=== PATIENT | male | born 1950 | race Caucasian/White ===

== ENCOUNTER 2017-08-17 13:57 | Inpatient (IN) | payer MEDICARE, OTHER ==
[~2017-08-17] VITALS: Ht 152.4 cm; Wt 87.5 kg
[~2017-08-17 13:57] MED LIST: INSU100C4 SQ; INSU100C6 SQ; NEXIUM; SEROQUEL; [UNRECOGNIZED DRUG - REMARK]
[2017-08-17 15:10] LABS: BASOPHILS % (AUTO) 0.2 % (0.0-2.0); EOSINOPHILS % (AUTO) 0.3 % (1.0-6.0); HEMATOCRIT 29.3 % (41-53); HEMOGLOBIN 9.8 g/dL (13.5-17.5); LYMPHOCYTES # (AUTO) 0.7 K/uL (1.0-4.8); LYMPHOCYTES % (AUTO) 13.9 % (22.0-44.0); MEAN CORPUSCULAR HGB CONC 33.3 G/dL (31.0-37.0); MEAN CORPUSCULAR VOLUME 90 fL (80-100); MONOCYTES # (AUTO) 0.5 K/uL (0.1-1.0); MONOCYTES % (AUTO) 9.3 % (2.0-9.0); NEUTROPHILS # (AUTO) 3.9 K/uL (1.8-7.7); NEUTROPHILS % (AUTO) 76.3 % (40.0-70.0); PLATELET COUNT (AUTO) 193 K/uL (150-450); RED BLOOD CELL COUNT(AUTO) 3.26 MIL/uL (4.50-5.90); RED CELL DISTRIBUTION WIDTH 16.8 % (11.5-14.5); WHITE BLOOD COUNT (AUTO) 5.1 K/uL (4.5-11.0)
[2017-08-17 15:22] LABS: ANION GAP 10 mmol/L (8-16); CALCIUM, TOTAL 8.4 mg/dL (8.8-10.5); CARBON DIOXIDE 25 mmol/L (22-29); CHLORIDE 115 mmol/L (98-107); CREATININE 1.67 mg/dL (0.60-1.30); GLOMERULAR FILTR. RATE CALC 41 mL/min (>60); POTASSIUM 3.5 mmol/L (3.5-5.1); SODIUM SERUM 150 mmol/L (136-145); UREA NITROGEN, BLOOD 44 mg/dL (7-18)
[2017-08-17 15:29] LABS: ALANINE AMINOTRANSFERASE 26 U/L (12-78); ASPARTATE AMINOTRANSFERASE 25 U/L (15-37); BILIRUBIN,TOTAL 0.3 mg/dL (0.1-1.0); CREATINE KINASE, TOTAL 64 U/L (39-308); TOTAL PROTEIN, SERUM 5.7 g/dL (6.4-8.2)
[2017-08-17 15:31] LABS: B-TYPE NATRIURETIC PEPTIDE 971 pg/mL (0-100)
[2017-08-17 15:37] LABS: INR 1.1 (0.9-1.1); PROTHROMBIN TIME 11.6 SEC (9.4-11.6)
[2017-08-17 15:40] LABS: APPEARANCE,URINE CLOUDY (CLEAR); GLUCOSE, URINE (UA) NEGATIVE (NEGATIVE); KETONES,URINE NEGATIVE (NEGATIVE); LEUKOCYTE ESTERASE ,URINE NEGATIVE (NEGATIVE); OCCULT BLOOD,URINE NEGATIVE (NEGATIVE); PROTEIN,URINE SEE CONFIRM (NEGATIVE)
[2017-08-17 15:42] LABS: ADD UA MICROSCOPIC YES
[2017-08-17 15:44] LABS: SULFOSALICYLIC ACID,URINE 4+ (Negative); WBC,URINE 0-2 /HPF (0-5)
[2017-08-17 15:47] LABS: RBC,URINE 0-2 /HPF (0-2); TRANSITIONAL EPI CELLS,URINE Few /LPF (None Seen)
[2017-08-17] MEDS ORDERED: ENOXAPARIN SODIUM 80 MG/0.8 ML PF SYRINGE SQ SCH (16:15)
[2017-08-17] MEDS ORDERED: ONDANSETRON HCL 4 MG/2 ML VIAL IVP PRN (17:45)
[2017-08-17] MEDS ORDERED: ACETAMINOPHEN 325 MG TABLET PO PRN (17:45)
[2017-08-17] MEDS ORDERED: 0.9% SODIUM CHLORIDE 10 ML SYRINGE IVP PRN (17:45)
[2017-08-17] MEDS ORDERED: FUROSEMIDE 40 MG/4 ML VIAL IVP ONE ×2 (18:00)
[2017-08-17] MEDS ORDERED: PENTETATE DTPA TC99M/MCL ISOTOPE 1 EA INJ INJ ONE (20:00)
[2017-08-17] MEDS ORDERED: IPRATROPIUM BROMIDE 0.5 MG/2.5 ML NEB SOLUTION NEB SCH (20:00)
[2017-08-17] MEDS ORDERED: ALBUTEROL SULFATE 2.5 MG/0.5 ML NEB SOLUTION NEB SCH (20:00)
[2017-08-17] MEDS ORDERED: MAA ALBUMIN AGGREGATED TC99M/UD<10MCL ISOTOPE 1 EA INJ INJ ONE (20:20)
[2017-08-17 21:00] VITALS: BP 129/61
[2017-08-17] MEDS ORDERED: DEXTROSE 50%-WATER 25 GM/50 ML SYRINGE IVP PRN (21:15)
[2017-08-17] MEDS ORDERED: ALBUTEROL SULFATE 2.5 MG/0.5 ML NEB SOLUTION NEB PRN (21:15)
[2017-08-17] MEDS ORDERED: ZOLPIDEM TARTRATE 5 MG TABLET PO PRN (21:15)
[2017-08-17] MEDS ORDERED: BISACODYL 10 MG RECTAL RECTAL SUPPOSITORY PR PRN (21:15)
[2017-08-17] MEDS ORDERED: IPRATROPIUM BROMIDE 0.5 MG/2.5 ML NEB SOLUTION NEB PRN (21:15)
[2017-08-17] MEDS ORDERED: INFLUENZA VIRUS VACCINE QVS 2017-18 (3YR+)/PF 60 MCG/0.5 ML SYRINGE IM ONE (23:00)
[2017-08-18] VITALS (7 sets, daily range): BP systolic 100–133; BP diastolic 43–56
[2017-08-18] MEDS ORDERED: FUROSEMIDE 40 MG/4 ML VIAL IVP SCH
[2017-08-18 04:47] LABS: GLUCOSE,POINT OF CARE 120 MG/DL (70-110)
[2017-08-18 05:15] LABS: ALBUMIN 1.7 g/dL (3.4-5.0); BILIRUBIN,TOTAL 0.2 mg/dL (0.1-1.0); CREATININE 1.87 mg/dL (0.60-1.30); POTASSIUM 3.7 mmol/L (3.5-5.1); TOTAL PROTEIN, SERUM 5.2 g/dL (6.4-8.2)
[2017-08-18 06:05] LABS: EOSINOPHILS % (AUTO) 0.5 % (1.0-6.0); HEMOGLOBIN 9.2 g/dL (13.5-17.5); LYMPHOCYTES # (AUTO) 0.5 K/uL (1.0-4.8); LYMPHOCYTES % (AUTO) 10.7 % (22.0-44.0); MEAN CORPUSCULAR HEMOGLOBIN 30.1 pg (26.0-34.0); MEAN CORPUSCULAR VOLUME 91 fL (80-100); MONOCYTES # (AUTO) 0.5 K/uL (0.1-1.0); MONOCYTES % (AUTO) 10.9 % (2.0-9.0); NEUTROPHILS # (AUTO) 3.8 K/uL (1.8-7.7); NEUTROPHILS % (AUTO) 77.9 % (40.0-70.0); PLATELET COUNT (AUTO) 190 K/uL (150-450); RED BLOOD CELL COUNT(AUTO) 3.06 MIL/uL (4.50-5.90); RED CELL DISTRIBUTION WIDTH 16.7 % (11.5-14.5); WHITE BLOOD COUNT (AUTO) 4.9 K/uL (4.5-11.0)
[2017-08-18] MEDS: ASPIRIN 81 MG CHEWABLE TABLET PO SCH (07:59)
[2017-08-18] MEDS: DOCUSATE SODIUM 100 MG CAPSULE PO SCH ×2 (07:59→20:51)
[2017-08-18] MEDS ORDERED: HEPARIN SODIUM,PORCINE 5,000 UNITS/ML VIAL SQ SCH (09:00)
[2017-08-18] MEDS ORDERED: PANTOPRAZOLE SODIUM 40 MG DR TABLET PO SCH (09:00)
[2017-08-18] MEDS: FUROSEMIDE 40 MG/4 ML VIAL IVP SCH ×2 (10:38→20:51)
[2017-08-18 12:07] LABS: GLUCOSE COMMENT 1 Received Meds; GLUCOSE,POINT OF CARE 140 MG/DL (70-110)
[2017-08-18] MEDS: IPRATROPIUM BROMIDE 0.5 MG/2.5 ML NEB SOLUTION NEB SCH ×3 (13:57→23:02)
[2017-08-18] MEDS: ALBUTEROL SULFATE 2.5 MG/0.5 ML NEB SOLUTION NEB SCH ×3 (13:57→23:02)
[2017-08-18 16:55] LABS: MAGNESIUM 2.5 mg/dL (1.80-2.40); PHOSPHORUS 5.1 mg/dL (2.5-4.9)
[2017-08-18] MEDS: INSULIN ASPART 100 UNITS/ML SQ PRN (21:07)
[2017-08-18] MEDS: OxyCODONE HCL/ACETAMINOPHEN 5-325 MG TABLET PO PRN (22:57)
[2017-08-19] VITALS: BP 114/50
[2017-08-19] MEDS: ALBUTEROL SULFATE 2.5 MG/0.5 ML NEB SOLUTION NEB SCH ×5 (02:50→23:46)
[2017-08-19] MEDS: IPRATROPIUM BROMIDE 0.5 MG/2.5 ML NEB SOLUTION NEB SCH ×5 (02:50→23:46)
[2017-08-19] MEDS ORDERED: RAPID SEQUENCE KIT [RSI] 1 EACH KIT ONE ×4 (03:37→03:56)
[2017-08-19 04:00] VITALS: BP 111/95
[2017-08-19 04:58] LABS: ABG A-A DIFF O2 564.8 mmHg (10-20.0); ABG BASE EXCESS -8.6 mmol/L (-2.0-3.0); ABG HCO3 17.5 mmol/L (22.0-26.0); ABG OXYHEMOGLOBIN 95.5 % (94.0-100.0); ABG PCO2 58 mmHg (35-45); TEMPERATURE, FAHRENHEIT, BG 97.7 FAHREN (96.0-98.6)
[2017-08-19 05:00] LABS: ABG PH 7.161 (7.35-7.450); ALLEN TEST, BLOOD GAS POS
[2017-08-19] MEDS ORDERED: BUMETANIDE 0.25 MG/ML 10 ML VIAL IVP ONE (06:45)
[2017-08-19 08:00] VITALS: BP 117/76
[2017-08-19 08:17] LABS: GLUCOSE,POINT OF CARE 131 MG/DL (70-110)
[2017-08-19 08:17] LABS: GLUCOSE COMMENT 1 Received Meds; GLUCOSE,POINT OF CARE 166 MG/DL (70-110)
[2017-08-19] MEDS: DOCUSATE SODIUM 100 MG CAPSULE PO SCH ×2 (09:13→22:01)
[2017-08-19] MEDS: ASPIRIN 81 MG CHEWABLE TABLET PO SCH (09:13)
[2017-08-19] MEDS: PANTOPRAZOLE SODIUM 40 MG/VIAL IVP SCH (09:13)
[2017-08-19] MEDS: FUROSEMIDE 40 MG/4 ML VIAL IVP SCH ×2 (09:14→22:00)
[2017-08-19 09:17] LABS: CALCIUM, TOTAL 8.1 mg/dL (8.8-10.5); CREATININE 2.6 mg/dL (0.60-1.30); MAGNESIUM 2.7 mg/dL (1.80-2.40)
[2017-08-19 09:58] LABS: BASOPHILS % (AUTO) 0.2 % (0.0-2.0); EOSINOPHILS % (AUTO) 0.1 % (1.0-6.0); HEMOGLOBIN 9.6 g/dL (13.5-17.5); LYMPHOCYTES # (AUTO) 0.3 K/uL (1.0-4.8); LYMPHOCYTES % (AUTO) 7.7 % (22.0-44.0); MEAN CORPUSCULAR HEMOGLOBIN 29.9 pg (26.0-34.0); MEAN CORPUSCULAR HGB CONC 33.1 G/dL (31.0-37.0); MEAN CORPUSCULAR VOLUME 90 fL (80-100); MONOCYTES % (AUTO) 1.2 % (2.0-9.0); NEUTROPHILS # (AUTO) 3.3 K/uL (1.8-7.7); PLATELET COUNT (AUTO) 171 K/uL (150-450); RED BLOOD CELL COUNT(AUTO) 3.21 MIL/uL (4.50-5.90); RED CELL DISTRIBUTION WIDTH 15.9 % (11.5-14.5)
[2017-08-19 09:59] LABS: NEUTROPHILS % (AUTO) 90.8 % (40.0-70.0); WHITE BLOOD COUNT (AUTO) 4.1 K/uL (4.5-11.0)
[2017-08-19] MEDS: PROPOFOL 1000 MG/ISO-OSM 100 ML IV PRN ×2 (10:46→22:41)
[2017-08-19 12:00] VITALS: BP 131/57
[2017-08-19 12:06] LABS: ABG A-A DIFF O2 511.6 mmHg (10-20.0); ABG BASE EXCESS -7.8 mmol/L (-2.0-3.0); ABG HCO3 18.4 mmol/L (22.0-26.0); ABG OXYHEMOGLOBIN 97.4 % (94.0-100.0); ABG PCO2 44 mmHg (35-45); ABG PH 7.259 (7.35-7.450); TEMPERATURE, FAHRENHEIT, BG 99.4 FAHREN (96.0-98.6)
[2017-08-19 12:08] LABS: ALLEN TEST, BLOOD GAS Positive
[2017-08-19 13:05] LABS: TOTAL PROTEIN URINE 388.6 mg/dL (Not Estab.)
[2017-08-19 14:37] LABS: GLUCOSE,POINT OF CARE 138 MG/DL (70-110)
[2017-08-19 14:37] LABS: GLUCOSE,POINT OF CARE 82 MG/DL (70-110)
[2017-08-19] MEDS ORDERED: FentaNYL CITRATE PF 500 MCG in DEXTROSE 5%-WATER 90 ML IV PRN (15:16)
[2017-08-19] MEDS ORDERED: AMIODARONE HCL 360 MG in DEXTROSE 5%-WATER 242.8 ML IV ONE (15:30)
[2017-08-19] MEDS ORDERED: AMIODARONE HCL 150 MG in DEXTROSE 5%-WATER 97 ML IV ONE (15:30)
[2017-08-19 16:00] VITALS: BP 140/60
[2017-08-19] MEDS ORDERED: SODIUM CHLORIDE 0.9% 500 ML IV ONE (16:07)
[2017-08-19] MEDS ORDERED: SODIUM CHLORIDE 0.9% 250 ML IV ONE (16:38)
[2017-08-19] MEDS ORDERED: DIGOXIN 250 MCG/ML 2 ML AMP IVP ONE (16:45)
[2017-08-19] MEDS: PIPERACILLIN SODIUM/TAZOBACTAM 2.25 GM in DEXTROSE 5%-WATER 50 ML IV SCH ×2 (16:45→22:05)
[2017-08-19] MEDS: MethylPREDNISolone SOD SUCC 125 MG/2 ML VIAL IVP SCH (17:25)
[2017-08-19 18:29] LABS: LACTIC ACID 0.9 mmol/L (0.4-2.0)
[2017-08-19 19:16] LABS: PROCALCITONIN (PCT) 2.32 ng/mL (<0.50)
[2017-08-19 20:00] VITALS: BP 160/58
[2017-08-19] MEDS ORDERED: BUMETANIDE 10 MG in DEXTROSE 5%-WATER 60 ML IV SCH (20:00)
[2017-08-19] MEDS: ALBUMIN HUMAN 25%-25GM/100ML 100 ML IV SCH (21:10)
[2017-08-19] MEDS ORDERED: AMIODARONE HCL 540 MG in DEXTROSE 5%-WATER 239.2 ML IV ONE (21:30)
[2017-08-19] MEDS: INSULIN ASPART 100 UNITS/ML SQ PRN (23:39)
[2017-08-20] VITALS: BP 119/66
[2017-08-20] MEDS: MethylPREDNISolone SOD SUCC 125 MG/2 ML VIAL IVP SCH ×4 (01:35→17:29)
[2017-08-20 01:37] LABS: GLUCOSE,POINT OF CARE 107 MG/DL (70-110)
[2017-08-20 01:37] LABS: GLUCOSE,POINT OF CARE 152 MG/DL (70-110)
[2017-08-20] MEDS: ALBUMIN HUMAN 25%-25GM/100ML 100 ML IV SCH (02:13)
[2017-08-20] MEDS: ALBUTEROL SULFATE 2.5 MG/0.5 ML NEB SOLUTION NEB SCH ×6 (02:45→22:22)
[2017-08-20] MEDS: IPRATROPIUM BROMIDE 0.5 MG/2.5 ML NEB SOLUTION NEB SCH ×6 (02:45→22:22)
[2017-08-20] MEDS: PIPERACILLIN SODIUM/TAZOBACTAM 2.25 GM in DEXTROSE 5%-WATER 50 ML IV SCH ×4 (03:31→20:57)
[2017-08-20 04:00] VITALS: BP 144/70
[2017-08-20 05:09] LABS: CALCIUM, TOTAL 8.1 mg/dL (8.8-10.5); CREATININE 3.24 mg/dL (0.60-1.30); MAGNESIUM 2.5 mg/dL (1.80-2.40); PHOSPHORUS 5.9 mg/dL (2.5-4.9); POTASSIUM 3.7 mmol/L (3.5-5.1)
[2017-08-20] MEDS: INSULIN ASPART 100 UNITS/ML SQ PRN ×4 (05:25→23:17)
[2017-08-20] MEDS: PROPOFOL 1000 MG/ISO-OSM 100 ML IV PRN ×3 (05:40→18:11)
[2017-08-20 05:54] LABS: EOSINOPHILS % (AUTO) 0 % (1.0-6.0); LYMPHOCYTES # (AUTO) 0.3 K/uL (1.0-4.8); LYMPHOCYTES % (AUTO) 6.3 % (22.0-44.0); MEAN CORPUSCULAR HEMOGLOBIN 30.1 pg (26.0-34.0); MEAN CORPUSCULAR HGB CONC 33.5 G/dL (31.0-37.0); MEAN CORPUSCULAR VOLUME 90 fL (80-100); MONOCYTES % (AUTO) 0.3 % (2.0-9.0); NEUTROPHILS # (AUTO) 4.9 K/uL (1.8-7.7); RED BLOOD CELL COUNT(AUTO) 2.67 MIL/uL (4.50-5.90); RED CELL DISTRIBUTION WIDTH 15.7 % (11.5-14.5); WHITE BLOOD COUNT (AUTO) 5.2 K/uL (4.5-11.0)
[2017-08-20 06:19] LABS: NEUTROPHILS % (AUTO) 93.4 % (40.0-70.0)
[2017-08-20 07:22] LABS: PLATELET COUNT (AUTO) 129 K/uL (150-450)
[2017-08-20 07:54] LABS: IGG (IMMUNOFIXATION) 713 mg/dL (700-1600)
[2017-08-20 08:00] VITALS: BP 153/65
[2017-08-20] MEDS ORDERED: ALBUMIN HUMAN 25%-25GM/100ML 100 ML IV PRN (08:45)
[2017-08-20] MEDS: DOCUSATE SODIUM 100 MG CAPSULE PO SCH ×2 (09:20→20:57)
[2017-08-20] MEDS: PANTOPRAZOLE SODIUM 40 MG/VIAL IVP SCH (09:20)
[2017-08-20] MEDS: ASPIRIN 81 MG CHEWABLE TABLET PO SCH (09:20)
[2017-08-20] MEDS ORDERED: SODIUM CHLORIDE 0.9% 2,000 ML IV ONE (11:31)
[2017-08-20 11:32] LABS: GLUCOSE,POINT OF CARE 195 MG/DL (70-110)
[2017-08-20 12:00] VITALS: BP 136/79
[2017-08-20 12:43] LABS: GLUCOSE,POINT OF CARE 158 MG/DL (70-110)
[2017-08-20] MEDS ORDERED: HEPARIN SODIUM,PORCINE 1,000 UNITS/ML VIAL IVP ONE ×2 (13:00)
[2017-08-20] MEDS ORDERED: MANNITOL 25%-12.5 GM/50 ML VIAL IVP PRN (13:00)
[2017-08-20] MEDS ORDERED: DIGOXIN 250 MCG/ML 2 ML AMP IVP ONE (13:00)
[2017-08-20] MEDS: METOPROLOL SUCCINATE 25 MG ER TABLET PO SCH ×2 (13:23→20:57)
[2017-08-20] MEDS ORDERED: AMIODARONE HCL 750 MG in DEXTROSE 5%-WATER 485 ML IV SCH (15:30)
[2017-08-20 15:38] LABS: ABG A-A DIFF O2 199.2 mmHg (10-20.0); ABG BASE EXCESS -4.6 mmol/L (-2.0-3.0); ABG OXYHEMOGLOBIN 94.6 % (94.0-100.0); ABG PCO2 37 mmHg (35-45); TEMPERATURE, FAHRENHEIT, BG 98.1 FAHREN (96.0-98.6)
[2017-08-20 15:39] LABS: ALLEN TEST, BLOOD GAS Positive
[2017-08-20 16:00] VITALS: BP 137/70
[2017-08-20] MEDS ORDERED: VECURONIUM BROMIDE 10 MG/VIAL IVP ONE (17:24)
[2017-08-20] MEDS ORDERED: ETOMIDATE 2 MG/ML 10 ML VIAL IVP ONE (17:24)
[2017-08-20] MEDS ORDERED: SODIUM CHLORIDE 0.9% 250 ML IV ONE (18:10)
[2017-08-20 20:00] VITALS: BP 157/62
[2017-08-20] MEDS: ACETAMINOPHEN 325 MG TABLET PO PRN (21:00)
[2017-08-21] VITALS: BP 154/60
[2017-08-21] MEDS: MethylPREDNISolone SOD SUCC 125 MG/2 ML VIAL IVP SCH ×5 (00:33→23:05)
[2017-08-21] MEDS: PROPOFOL 1000 MG/ISO-OSM 100 ML IV PRN ×3 (01:16→17:14)
[2017-08-21] MEDS: ALBUTEROL SULFATE 2.5 MG/0.5 ML NEB SOLUTION NEB SCH ×6 (02:34→22:40)
[2017-08-21] MEDS: IPRATROPIUM BROMIDE 0.5 MG/2.5 ML NEB SOLUTION NEB SCH ×6 (02:34→22:40)
[2017-08-21 04:00] VITALS: BP 158/64
[2017-08-21] MEDS: PIPERACILLIN SODIUM/TAZOBACTAM 2.25 GM in DEXTROSE 5%-WATER 50 ML IV SCH ×4 (04:54→21:37)
[2017-08-21] MEDS: ACETAMINOPHEN 325 MG TABLET PO PRN (04:56)
[2017-08-21] MEDS: INSULIN ASPART 100 UNITS/ML SQ PRN ×4 (05:11→23:05)
[2017-08-21 05:18] LABS: EOSINOPHILS % (AUTO) 0.01 % (1.0-6.0); HEMATOCRIT 26.1 % (41-53); HEMOGLOBIN 8.6 g/dL (13.5-17.5); LYMPHOCYTES # (AUTO) 0.3 K/uL (1.0-4.8); LYMPHOCYTES % (AUTO) 3.2 % (22.0-44.0); MEAN CORPUSCULAR HEMOGLOBIN 29.3 pg (26.0-34.0); MEAN CORPUSCULAR HGB CONC 32.8 G/dL (31.0-37.0); MEAN CORPUSCULAR VOLUME 89 fL (80-100); MONOCYTES # (AUTO) 0.2 K/uL (0.1-1.0); MONOCYTES % (AUTO) 1.8 % (2.0-9.0); NEUTROPHILS # (AUTO) 7.9 K/uL (1.8-7.7); PLATELET COUNT (AUTO) 166 K/uL (150-450); RED BLOOD CELL COUNT(AUTO) 2.92 MIL/uL (4.50-5.90); RED CELL DISTRIBUTION WIDTH 15.4 % (11.5-14.5); WHITE BLOOD COUNT (AUTO) 8.4 K/uL (4.5-11.0)
[2017-08-21 05:23] LABS: GLUCOSE,POINT OF CARE 209 MG/DL (70-110)
[2017-08-21 05:23] LABS: GLUCOSE,POINT OF CARE 228 MG/DL (70-110)
[2017-08-21 05:25] LABS: ALBUMIN 1.7 g/dL (3.4-5.0); BILIRUBIN,TOTAL 0.4 mg/dL (0.1-1.0); CALCIUM, TOTAL 8.1 mg/dL (8.8-10.5); CREATININE 3.26 mg/dL (0.60-1.30); DIGOXIN 0.85 ng/mL (0.90-2.00); POTASSIUM 3.6 mmol/L (3.5-5.1); TOTAL PROTEIN, SERUM 4.9 g/dL (6.4-8.2)
[2017-08-21 08:00] VITALS: BP 156/70
[2017-08-21] MEDS: ASPIRIN 81 MG CHEWABLE TABLET PO SCH (08:37)
[2017-08-21] MEDS: METOPROLOL SUCCINATE 25 MG ER TABLET PO SCH ×2 (08:37→19:52)
[2017-08-21] MEDS: PANTOPRAZOLE SODIUM 40 MG/VIAL IVP SCH (08:37)
[2017-08-21] MEDS: DOCUSATE SODIUM 100 MG CAPSULE PO SCH ×2 (08:37→19:52)
[2017-08-21 09:52] LABS: ABG A-A DIFF O2 198.2 mmHg (10-20.0); ABG BASE EXCESS -5.1 mmol/L (-2.0-3.0); ABG HCO3 20.7 mmol/L (22.0-26.0); ABG PCO2 34 mmHg (35-45); ABG PH 7.386 (7.35-7.450); TEMPERATURE, FAHRENHEIT, BG 98.6 FAHREN (96.0-98.6)
[2017-08-21 10:02] LABS: ALLEN TEST, BLOOD GAS Positive
[2017-08-21] MEDS ORDERED: VANCOMYCIN HCL 1 GM/D5% WATER 200 ML IV PRN (11:15)
[2017-08-21] MEDS: OxyCODONE HCL/ACETAMINOPHEN 5-325 MG TABLET PO PRN (11:26)
[2017-08-21] MEDS ORDERED: SODIUM CHLORIDE 0.9% 2,000 ML IV ONE (11:30)
[2017-08-21 12:00] VITALS: BP 157/68
[2017-08-21] MEDS ORDERED: VANCOMYCIN HCL 1 GM/D5% WATER 200 ML IV ONE ×2 (12:00→16:00)
[2017-08-21] MEDS: METOCLOPRAMIDE HCL 5 MG/ML 2 ML VIAL IVP SCH ×2 (15:24→23:05)
[2017-08-21] MEDS ORDERED: HEPARIN SODIUM,PORCINE 1,000 UNITS/ML VIAL IVP ONE ×2 (15:45→16:52)
[2017-08-21 16:00] VITALS: BP 162/77
[2017-08-21] MEDS: AMIODARONE HCL 200 MG TABLET PO SCH (19:52)
[2017-08-21 20:00] VITALS: BP 168/78
[2017-08-21 20:02] LABS: GLUCOSE,POINT OF CARE 298 MG/DL (70-110)
[2017-08-21] MEDS: HydrALAZINE HCL 20 MG/ML VIAL IVP PRN (21:36)
[2017-08-22] VITALS: BP 148/66
[2017-08-22] MEDS: PROPOFOL 1000 MG/ISO-OSM 100 ML IV PRN ×4 (00:39→13:36)
[2017-08-22] MEDS ORDERED: SODIUM CHLORIDE 0.9% 0 ML IV ONE (01:50)
[2017-08-22] MEDS: ALBUTEROL SULFATE 2.5 MG/0.5 ML NEB SOLUTION NEB SCH ×6 (03:11→23:51)
[2017-08-22] MEDS: IPRATROPIUM BROMIDE 0.5 MG/2.5 ML NEB SOLUTION NEB SCH ×6 (03:11→23:51)
[2017-08-22 04:00] VITALS: BP 174/66
[2017-08-22] MEDS: HydrALAZINE HCL 20 MG/ML VIAL IVP PRN (04:01)
[2017-08-22] MEDS: PIPERACILLIN SODIUM/TAZOBACTAM 2.25 GM in DEXTROSE 5%-WATER 50 ML IV SCH ×4 (04:01→20:58)
[2017-08-22 05:12] LABS: CALCIUM, TOTAL 7.9 mg/dL (8.8-10.5); CREATININE 2.91 mg/dL (0.60-1.30); POTASSIUM 3.2 mmol/L (3.5-5.1)
[2017-08-22] MEDS: MethylPREDNISolone SOD SUCC 125 MG/2 ML VIAL IVP SCH (05:30)
[2017-08-22] MEDS: INSULIN ASPART 100 UNITS/ML SQ PRN ×4 (05:31→23:14)
[2017-08-22 06:10] LABS: EOSINOPHILS % (AUTO) 0.01 % (1.0-6.0); HEMATOCRIT 27.1 % (41-53); HEMOGLOBIN 9.1 g/dL (13.5-17.5); LYMPHOCYTES # (AUTO) 0.3 K/uL (1.0-4.8); LYMPHOCYTES % (AUTO) 2.4 % (22.0-44.0); MEAN CORPUSCULAR HGB CONC 33.7 G/dL (31.0-37.0); MEAN CORPUSCULAR VOLUME 89 fL (80-100); MONOCYTES # (AUTO) 0.1 K/uL (0.1-1.0); MONOCYTES % (AUTO) 1.2 % (2.0-9.0); NEUTROPHILS # (AUTO) 10.3 K/uL (1.8-7.7); PLATELET COUNT (AUTO) 139 K/uL (150-450); RED BLOOD CELL COUNT(AUTO) 3.05 MIL/uL (4.50-5.90); WHITE BLOOD COUNT (AUTO) 10.7 K/uL (4.5-11.0)
[2017-08-22 07:08] LABS: GLUCOSE COMMENT 1 Received Meds; GLUCOSE,POINT OF CARE 318 MG/DL (70-110)
[2017-08-22 07:15] LABS: NEUTROPHILS % (AUTO) 96.3 % (40.0-70.0)
[2017-08-22] MEDS: DOCUSATE SODIUM 100 MG CAPSULE PO SCH ×2 (07:42→20:01)
[2017-08-22 08:00] VITALS: BP 159/60
[2017-08-22] MEDS: METOPROLOL SUCCINATE 25 MG ER TABLET PO SCH ×3 (08:20→20:03)
[2017-08-22] MEDS: AMIODARONE HCL 200 MG TABLET PO SCH (08:20)
[2017-08-22] MEDS ORDERED: POTASSIUM CHL 10 MEQ/WATER 50 ML IV ONE (08:45)
[2017-08-22 08:50] LABS: ABG A-A DIFF O2 144.3 mmHg (10-20.0); ABG BASE EXCESS -3.5 mmol/L (-2.0-3.0); ABG HCO3 22.1 mmol/L (22.0-26.0); ABG OXYHEMOGLOBIN 93.1 % (94.0-100.0); ABG PCO2 30 mmHg (35-45); ABG PH 7.454 (7.35-7.450); TEMPERATURE, FAHRENHEIT, BG 97.8 FAHREN (96.0-98.6)
[2017-08-22 08:51] LABS: ALLEN TEST, BLOOD GAS Positive
[2017-08-22] MEDS: AmLODIPine BESYLATE 10 MG TABLET PO SCH (08:57)
[2017-08-22] MEDS: PANTOPRAZOLE SODIUM 40 MG/VIAL IVP SCH (08:57)
[2017-08-22] MEDS: ASPIRIN 81 MG CHEWABLE TABLET PO SCH (08:57)
[2017-08-22] MEDS: METOCLOPRAMIDE HCL 5 MG/ML 2 ML VIAL IVP SCH ×3 (08:57→23:13)
[2017-08-22] MEDS ORDERED: SODIUM CHLORIDE 0.9% 500 ML IV ONE (09:11)
[2017-08-22 10:03] LABS: ALBUMIN/GLOBULIN RAITO (PEP) 0.6 (0.7-1.7); ALPHA-1 GLOBULINS(PEP) 0.3 g/dL (0.0-0.4); ALPHA-2 GLOBULINS (PEP) 1.1 g/dL (0.4-1.0); BETA (PEP) 0.7 g/dL (0.7-1.3); GAMMA GLOBULINS (PEP) 0.6 g/dL (0.4-1.8); GLOBULIN TOTAL (PEP) 2.8 g/dL (2.2-3.9); M-SPIKE (PEP) Not Observed g/dL (Not Observed); TOTAL PROTEIN 4.6 g/dL (6.0-8.5)
[2017-08-22] MEDS ORDERED: SODIUM CHLORIDE 0.9% 1,000 ML IV ONE (10:35)
[2017-08-22 12:00] VITALS: BP 126/55
[2017-08-22] MEDS: MethylPREDNISolone SOD SUCC 40 MG/ML VIAL IVP SCH ×3 (12:55→23:13)
[2017-08-22] MEDS ORDERED: HEPARIN SODIUM,PORCINE 1,000 UNITS/ML VIAL IVP ONE ×3 (13:00→17:14)
[2017-08-22] MEDS ORDERED: VANCOMYCIN HCL 1.25 GM in DEXTROSE 5%-WATER 250 ML IV ONE (13:00)
[2017-08-22] MEDS: OxyCODONE HCL/ACETAMINOPHEN 5-325 MG TABLET PO PRN ×2 (15:50→20:00)
[2017-08-22 16:00] VITALS: BP 147/58
[2017-08-22 17:45] LABS: ABG A-A DIFF O2 138.4 mmHg (10-20.0); ABG BASE EXCESS -1.7 mmol/L (-2.0-3.0); ABG HCO3 23.2 mmol/L (22.0-26.0); ABG OXYHEMOGLOBIN 92.3 % (94.0-100.0); ABG PCO2 37 mmHg (35-45); ABG PH 7.413 (7.35-7.450); ALLEN TEST, BLOOD GAS Positive; TEMPERATURE, FAHRENHEIT, BG 97.8 FAHREN (96.0-98.6)
[2017-08-22 19:43] LABS: ABG A-A DIFF O2 110.5 mmHg (10-20.0); ABG BASE EXCESS -3.7 mmol/L (-2.0-3.0); ABG HCO3 21.5 mmol/L (22.0-26.0); ABG OXYHEMOGLOBIN 92.4 % (94.0-100.0); ABG PCO2 40 mmHg (35-45); ABG PH 7.352 (7.35-7.450); TEMPERATURE, FAHRENHEIT, BG 98.1 FAHREN (96.0-98.6)
[2017-08-22 19:44] LABS: ALLEN TEST, BLOOD GAS Positive
[2017-08-22 20:00] VITALS: BP 153/59
[2017-08-23] VITALS: BP 148/60
[2017-08-23] MEDS: ALBUTEROL SULFATE 2.5 MG/0.5 ML NEB SOLUTION NEB SCH ×6 (03:51→23:29)
[2017-08-23] MEDS: IPRATROPIUM BROMIDE 0.5 MG/2.5 ML NEB SOLUTION NEB SCH ×6 (03:51→23:29)
[2017-08-23] MEDS: PIPERACILLIN SODIUM/TAZOBACTAM 2.25 GM in DEXTROSE 5%-WATER 50 ML IV SCH ×3 (03:57→19:36)
[2017-08-23 04:00] VITALS: BP 145/65
[2017-08-23] MEDS: MethylPREDNISolone SOD SUCC 40 MG/ML VIAL IVP SCH ×4 (05:25→23:32)
[2017-08-23] MEDS: INSULIN ASPART 100 UNITS/ML SQ PRN ×3 (05:25→17:25)
[2017-08-23 05:28] LABS: CALCIUM, TOTAL 7.9 mg/dL (8.8-10.5); CREATININE 2.91 mg/dL (0.60-1.30); MAGNESIUM 2.1 mg/dL (1.80-2.40); POTASSIUM 3.7 mmol/L (3.5-5.1)
[2017-08-23] MEDS: HydrALAZINE HCL 20 MG/ML VIAL IVP PRN (05:43)
[2017-08-23 06:38] LABS: EOSINOPHILS % (AUTO) 0 % (1.0-6.0); HEMATOCRIT 30.8 % (41-53); HEMOGLOBIN 10.3 g/dL (13.5-17.5); LYMPHOCYTES # (AUTO) 0.3 K/uL (1.0-4.8); LYMPHOCYTES % (AUTO) 1.5 % (22.0-44.0); MEAN CORPUSCULAR HEMOGLOBIN 29.7 pg (26.0-34.0); MEAN CORPUSCULAR HGB CONC 33.4 G/dL (31.0-37.0); MEAN CORPUSCULAR VOLUME 89 fL (80-100); MONOCYTES # (AUTO) 0.3 K/uL (0.1-1.0); MONOCYTES % (AUTO) 1.2 % (2.0-9.0); NEUTROPHILS # (AUTO) 21.2 K/uL (1.8-7.7); PLATELET COUNT (AUTO) 183 K/uL (150-450); RED BLOOD CELL COUNT(AUTO) 3.47 MIL/uL (4.50-5.90); RED CELL DISTRIBUTION WIDTH 14.6 % (11.5-14.5); WHITE BLOOD COUNT (AUTO) 21.8 K/uL (4.5-11.0)
[2017-08-23 06:45] LABS: NEUTROPHILS % (AUTO) 97.3 % (40.0-70.0)
[2017-08-23] MEDS ORDERED: PIPERACILLIN SODIUM/TAZOBACTAM 0.75 GM in DEXTROSE 5%-WATER 50 ML IV PRN (07:30)
[2017-08-23] MEDS: METOCLOPRAMIDE HCL 5 MG/ML 2 ML VIAL IVP SCH ×3 (07:39→23:31)
[2017-08-23] MEDS: ASPIRIN 81 MG CHEWABLE TABLET PO SCH (07:40)
[2017-08-23] MEDS: PANTOPRAZOLE SODIUM 40 MG/VIAL IVP SCH (07:40)
[2017-08-23] MEDS: METOPROLOL SUCCINATE 25 MG ER TABLET PO SCH ×2 (07:41→20:54)
[2017-08-23] MEDS: AmLODIPine BESYLATE 10 MG TABLET PO SCH (07:41)
[2017-08-23] MEDS: DOCUSATE SODIUM 100 MG CAPSULE PO SCH ×3 (07:41→21:00)
[2017-08-23 07:48] LABS: GLUCOSE COMMENT 1 Received Meds; GLUCOSE,POINT OF CARE 302 MG/DL (70-110)
[2017-08-23 08:00] VITALS: BP 155/67
[2017-08-23] MEDS: BUMETANIDE 0.25 MG/ML 10 ML VIAL IVP SCH ×2 (09:18→20:51)
[2017-08-23 11:53] LABS: GLUCOSE,POINT OF CARE 200 MG/DL (70-110)
[2017-08-23 11:54] LABS: GLUCOSE,POINT OF CARE 275 MG/DL (70-110)
[2017-08-23 11:54] LABS: GLUCOSE COMMENT 1 Received Meds; GLUCOSE,POINT OF CARE 261 MG/DL (70-110)
[2017-08-23 11:54] LABS: GLUCOSE COMMENT 1 Received Meds; GLUCOSE,POINT OF CARE 342 MG/DL (70-110)
[2017-08-23 11:54] LABS: GLUCOSE COMMENT 1 Received Meds; GLUCOSE,POINT OF CARE 255 MG/DL (70-110)
[2017-08-23 12:00] VITALS: BP 139/67
[2017-08-23 12:03] LABS: GLUCOSE,POINT OF CARE 306 MG/DL (70-110)
[2017-08-23 16:00] VITALS: BP 130/68
[2017-08-23 20:00] VITALS: BP 156/73
[2017-08-23] MEDS: AMIODARONE HCL 200 MG TABLET PO SCH (20:51)
[2017-08-23] MEDS: APIXABAN 2.5 MG TABLET PO SCH (20:52)
[2017-08-24] VITALS: BP 147/60
[2017-08-24] MEDS ORDERED: SODIUM CHLORIDE 0.9% 250 ML IV ONE (00:51)
[2017-08-24] MEDS: HydrALAZINE HCL 20 MG/ML VIAL IVP PRN (02:29)
[2017-08-24] MEDS: ALBUTEROL SULFATE 2.5 MG/0.5 ML NEB SOLUTION NEB SCH ×4 (03:05→15:19)
[2017-08-24] MEDS: IPRATROPIUM BROMIDE 0.5 MG/2.5 ML NEB SOLUTION NEB SCH ×4 (03:06→15:19)
[2017-08-24 03:47] LABS: GLUCOSE COMMENT 1 Received Meds; GLUCOSE,POINT OF CARE 281 MG/DL (70-110)
[2017-08-24] MEDS: PIPERACILLIN SODIUM/TAZOBACTAM 2.25 GM in DEXTROSE 5%-WATER 50 ML IV SCH ×2 (03:48→11:44)
[2017-08-24 04:00] VITALS: BP 157/81
[2017-08-24 05:17] LABS: CALCIUM, TOTAL 7.9 mg/dL (8.8-10.5); CREATININE 3.67 mg/dL (0.60-1.30); MAGNESIUM 2.3 mg/dL (1.80-2.40); PHOSPHORUS 5.8 mg/dL (2.5-4.9); POTASSIUM 3.7 mmol/L (3.5-5.1)
[2017-08-24] MEDS: INSULIN ASPART 100 UNITS/ML SQ PRN ×2 (05:56→11:45)
[2017-08-24] MEDS: MethylPREDNISolone SOD SUCC 40 MG/ML VIAL IVP SCH ×2 (06:08→11:44)
[2017-08-24 06:22] LABS: GLUCOSE COMMENT 1 Received Meds; GLUCOSE,POINT OF CARE 289 MG/DL (70-110)
[2017-08-24 06:22] LABS: EOSINOPHILS % (AUTO) 0 % (1.0-6.0); HEMATOCRIT 31.6 % (41-53); HEMOGLOBIN 10.5 g/dL (13.5-17.5); LYMPHOCYTES # (AUTO) 0.3 K/uL (1.0-4.8); LYMPHOCYTES % (AUTO) 1.5 % (22.0-44.0); MEAN CORPUSCULAR HEMOGLOBIN 29.5 pg (26.0-34.0); MEAN CORPUSCULAR HGB CONC 33.1 G/dL (31.0-37.0); MEAN CORPUSCULAR VOLUME 89 fL (80-100); MONOCYTES # (AUTO) 0.3 K/uL (0.1-1.0); MONOCYTES % (AUTO) 1.2 % (2.0-9.0); NEUTROPHILS # (AUTO) 19.9 K/uL (1.8-7.7); PLATELET COUNT (AUTO) 174 K/uL (150-450); RED BLOOD CELL COUNT(AUTO) 3.55 MIL/uL (4.50-5.90); RED CELL DISTRIBUTION WIDTH 14.6 % (11.5-14.5); WHITE BLOOD COUNT (AUTO) 20.5 K/uL (4.5-11.0)
[2017-08-24 06:55] LABS: NEUTROPHILS % (AUTO) 97.3 % (40.0-70.0)
[2017-08-24 07:58] LABS: ABG A-A DIFF O2 71.6 mmHg (10-20.0); ABG BASE EXCESS -4.3 mmol/L (-2.0-3.0); ABG HCO3 21.1 mmol/L (22.0-26.0); ABG OXYHEMOGLOBIN 93.2 % (94.0-100.0); ABG PCO2 41 mmHg (35-45); ABG PH 7.339 (7.35-7.450); TEMPERATURE, FAHRENHEIT, BG 98.6 FAHREN (96.0-98.6)
[2017-08-24 08:00] VITALS: BP 148/73
[2017-08-24 08:00] LABS: ALLEN TEST, BLOOD GAS Positive
[2017-08-24] MEDS: AmLODIPine BESYLATE 10 MG TABLET PO SCH (08:31)
[2017-08-24] MEDS: AMIODARONE HCL 200 MG TABLET PO SCH (08:32)
[2017-08-24] MEDS: MetroNIDAZOLE 500 MG TABLET PO SCH ×2 (08:32→15:13)
[2017-08-24] MEDS: APIXABAN 2.5 MG TABLET PO SCH (08:32)
[2017-08-24] MEDS: METOPROLOL SUCCINATE 25 MG ER TABLET PO SCH (08:32)
[2017-08-24] MEDS: ASPIRIN 81 MG CHEWABLE TABLET PO SCH (08:32)
[2017-08-24] MEDS: DOCUSATE SODIUM 100 MG CAPSULE PO SCH (08:33)
[2017-08-24] MEDS: PANTOPRAZOLE SODIUM 40 MG/VIAL IVP SCH (08:33)
[2017-08-24] MEDS: BUMETANIDE 0.25 MG/ML 10 ML VIAL IVP SCH (08:33)
[2017-08-24] MEDS: METOCLOPRAMIDE HCL 5 MG/ML 2 ML VIAL IVP SCH ×2 (08:38→15:13)
[2017-08-24 11:03] LABS: GLUCOSE,POINT OF CARE 304 MG/DL (70-110)
[2017-08-24 12:00] VITALS: BP 145/67
[2017-08-24 16:00] VITALS: BP 146/60
[2017-08-25 07:40] LABS: GLUCOSE,POINT OF CARE 362 MG/DL (70-110)
[2017-08-25] MEDS ORDERED: VANCOMYCIN HCL 1.25 GM in DEXTROSE 5%-WATER 250 ML IV ONE (08:00)
== END 2017-08-24 16:35 | DRG 871 ==
LOC: EMS 13:58 → ICU 18:28
PROVIDERS: ADMIT Internal Medicine; ATTEND Internal Medicine
PROC: 3E0234Z Introduction of Serum, Toxoid and Vaccine into Muscle, Percutaneous Approach (ICD-10-PCS; 2017-08-17)
PROC: 5A1945Z Respiratory Ventilation, 24-96 Consecutive Hours (ICD-10-PCS; principal; 2017-08-19)
PROC: 0BH17EZ Insertion of Endotracheal Airway into Trachea, Via Natural or Artificial Opening (ICD-10-PCS; 2017-08-19)
PROC: 02HV33Z Insertion of Infusion Device into Superior Vena Cava, Percutaneous Approach (ICD-10-PCS; 2017-08-19)
PROC: B548ZZA Ultrasonography of Superior Vena Cava, Guidance (ICD-10-PCS; 2017-08-19)
PROC: 5A1D70Z Performance of Urinary Filtration, Intermittent, Less than 6 Hours Per Day (ICD-10-PCS; 2017-08-20)
PROC: 5A1D70Z Performance of Urinary Filtration, Intermittent, Less than 6 Hours Per Day (ICD-10-PCS; 2017-08-21)
PROC: 5A1D70Z Performance of Urinary Filtration, Intermittent, Less than 6 Hours Per Day (ICD-10-PCS; 2017-08-22)
DX: A41.9 Sepsis, unspecified organism (principal); E43 Unspecified severe protein-calorie malnutrition; J69.0 Pneumonitis due to inhalation of food and vomit; N17.0 Acute kidney failure with tubular necrosis; J96.21 Acute and chronic respiratory failure with hypoxia; I50.43 Acute on chronic combined systolic (congestive) and diastolic (congestive) heart failure; I48.0 Paroxysmal atrial fibrillation; Z99.11 Dependence on respirator [ventilator] status; J96.22 Acute and chronic respiratory failure with hypercapnia; E87.2 Acidosis; E87.0 Hyperosmolality and hypernatremia; J44.1 Chronic obstructive pulmonary disease with (acute) exacerbation; I13.0 Hypertensive heart and chronic kidney disease with heart failure and stage 1 through stage 4 chronic kidney disease, or unspecified chronic kidney disease; E83.51 Hypocalcemia; E88.09 Other disorders of plasma-protein metabolism, not elsewhere classified; N18.3 Chronic kidney disease, stage 3 (moderate); F17.210 Nicotine dependence, cigarettes, uncomplicated; E11.21 Type 2 diabetes mellitus with diabetic nephropathy; F32.9 Major depressive disorder, single episode, unspecified; R19.7 Diarrhea, unspecified; R34 Anuria and oliguria; E11.40 Type 2 diabetes mellitus with diabetic neuropathy, unspecified; D63.8 Anemia in other chronic diseases classified elsewhere; E11.22 Type 2 diabetes mellitus with diabetic chronic kidney disease; E11.319 Type 2 diabetes mellitus with unspecified diabetic retinopathy without macular edema; E11.51 Type 2 diabetes mellitus with diabetic peripheral angiopathy without gangrene; E11.65 Type 2 diabetes mellitus with hyperglycemia; F20.9 Schizophrenia, unspecified; I49.3 Ventricular premature depolarization; Z68.37 Body mass index [BMI] 37.0-37.9, adult; Z23 Encounter for immunization; Z79.4 Long term (current) use of insulin; Z89.511 Acquired absence of right leg below knee; Z89.512 Acquired absence of left leg below knee; Z99.81 Dependence on supplemental oxygen; Z71.6 Tobacco abuse counseling; E87.6 Hypokalemia; Z78.1 Physical restraint status
CPT/HCPCS: 71250; 76770; 78582; 82570; 82728; 82784; 82805; 82962; 83540; 83550; 83605; 83735; 84100; 84145; 84155; 84156; 84165; 84166; 85379; 86334; 87040; 87070; 87081; 87205; 87324; 87340; 87449; 90935; 92526; 92610; 93005; 93306; 93970; 94002; 94003; 94640; 94799; 96372; 96374; 99285; A9539; A9540; C9113; J0282; J0360; J1160; J1644; J1650; J1940; J2543; J2704; J2765; J2920; J2930; J3010; J3370; J3480; J3490; J7030; J7040; J7050; J7060; P9046